=== PATIENT | male | born 1995 | race Caucasian/White ===

== ENCOUNTER 2024-06-19 17:29 | Emergency (ER) | payer MEDICAID, SELFPAY ==
[2024-06-19 17:33] VITALS: BP 136/85; PULSE 73; RESP 10; TEMP 36.5; O2SAT 97
--- NOTE | 2024-06-19 17:42 | ED.GENADUL_ITS ---
Discharge Plan Disposition Patient Disposition: Home Condition: Stable Discharge Details Chief Complaint: Orthopedic Clinical Impression: Contusion of left foot or heel, Contusion of right foot or heel ED Provider: Julio C Marie Home Meds and New Rx's Prescriptions: No Action No Known Home Meds Discharge Instructions Additional Instructions: Your x-rays did not show any concerning findings If your pain continues in 1 to 2 weeks follow-up with your primary care provider If you feel more ill or have severe worsening pain return to the emergency department for reevaluation Stand Alone Forms: Work Release [facility] General Mode of arrival: ambulatory . Date/Time Provider Initiated Documentation: 06/19/24 17:31 . Limitations to Documentation: no limitations . Information obtained by: patient . History of Present Illness 29 year old M presents to the emergency department with the chief complaint of bilateral heel pain s/p fall 2 days ago, described as moderate, Quality is described as aching, and it has been constant. Rest improves symptom(s), Movement worsens symptoms . Patient did receive the following treatments prior to arrival, none Related Data Home Medications ?Medication ?Instructions ?Recorded ?Confirmed Unknown [No Known Home Meds] 06/19/24 06/19/24 Allergies Allergy/AdvReac Type Severity Reaction Status Date / Time No Known Allergies Allergy Unverified 06/19/24 17:36 General Stated Complaint: Orthopedic BRITTANEY: 4 Review of Systems All systems reviewed & are unremarkable except as noted in HPI and below Constitutional Constitutional: Denies chills, Denies fever(s) and Denies weakness Cardiovascular Cardiovascular: Denies chest pain and Denies dyspnea Respiratory Respiratory: Denies cough and Denies dyspnea Gastrointestinal Gastrointestinal: Denies abdominal pain, Denies nausea and Denies vomiting Musculoskeletal Musculoskeletal: Denies joint swelling Integumentary/Breasts Skin/Breast: Denies rash Neurologic Neurologic: Denies weakness Exam Const General: no acute distress Orientation: alert HENMT Head: normal to inspection Ears: external ears normal General nose exam: external nose normal Mouth: moist mucous membranes Eyes General: appearance normal, both eyes and all related structures Neck Neck: normal visual inspection Resp Effort & Inspection: normal respiratory effort and able to speak in complete sentences Cardio Rate: regular rate Skin General skin exam: no rashes or lesions noted Neuro General: patient alert and patient oriented x3 Extrem General: full ROM and capillary refill normal Psych Mental Status: mental status grossly normal Course Vital Signs Vital signs: Vital Signs Temperature 36.5 C 06/19/24 17:33 Pulse 73 06/19/24 17:33 Respiratory Rate 10 L 06/19/24 17:33 Blood Pressure 136/85 06/19/24 17:33 Pulse Oximetry 97 06/19/24 17:33 Temperature 36.5 C 06/19/24 17:33 Temperature Source Oral 06/19/24 17:33 Pulse 73 06/19/24 17:33 Respiratory Rate 10 L 06/19/24 17:33 Respiratory Effort Normal, Non-Labored 06/19/24 17:35 Blood Pressure 136/85 06/19/24 17:33 Blood Pressure Position Sitting 06/19/24 17:33 Pulse Oximetry 97 06/19/24 17:33 Oxygen Delivery Method Room Air 06/19/24 17:33 Oxygen Flow Rate 0 06/19/24 17:33 Pain Level 10 06/19/24 17:33 Medical Decision Making 2-year-old male with no significant past medical history comes in with bilateral heel pain. He says he felt 2 days ago while he was working on a window he slipped and fell approximately 14 feet landing on his feet. He did not hit his head or have other injuries. He denies any headache, neck pain, back pain. He localizes the pain to the mid plantar surface of the heels. There is no visible or palpable deformity but he is tender in his areas bilaterally. Intact sensation and pulses. No tenderness in the foot or wrist of the ankles. He has no lumbar or T-spine tenderness. Suspect contusions but will obtain bilateral heel x-rays, given lack of tenderness in the T and L-spine do not feel any other imaging indicated. Bilateral heel x-rays negative for acute findings. Patient is stable and is able to bear weight without issue. He is stable for discharge and will follow- up with his PCP if not improving in 1 to 2 weeks, return precautions given Differential Diagnosis Differential Diagnosis: Fracture, contusion Quality:SDOH Health Related Social Needs: No Data to Display PFSH All Active Problems (Updated 06/19/24 @ 19:04 by Julio C Marie MD) Contusion of right foot or heel (Acute) Contusion of left foot or heel (Acute) Social History Smoking/Tobacco Use Status: Current every day Tobacco Type: cigarettes Smoking risk assessment performed?: Yes Alcohol Intake: never Drug use: Daily Substance use type: marijuana Housing: apartment Do you feel safe at home: Yes Do you feel safe in your relationship?: Yes
--- NOTE | 2024-06-19 18:20 | DI.RAD_ITS ---
Exam(s) XR HEEL RT OS CALCIS EXAM: XR HEEL RT OS CALCIS CLINICAL HISTORY: fall, pain. TECHNIQUE: 2D digital imaging was performed. Two images were obtained. COMPARISON: No exams were available for comparison FINDINGS: BONES: No acute fracture is present. No bony destructive lesion is seen. JOINTS: No dislocation present. SOFT TISSUE: Normal. IMPRESSION: No acute fracture or dislocation. DATA REPOSITORY: RADIATION DOSE DELIVERED:
--- NOTE | 2024-06-19 18:20 | DI.RAD_ITS ---
Exam(s) XR HEEL LT OS CALCIS EXAM: XR HEEL LT OS CALCIS CLINICAL HISTORY: fall pain. TECHNIQUE: 2D digital imaging was performed. Two images were obtained. COMPARISON: There are no priors for comparison. FINDINGS: BONES: No acute fracture is present. No bony destructive lesion is seen. JOINTS: No dislocation present. SOFT TISSUE: Normal. IMPRESSION: There is no acute fracture or dislocation. DATA REPOSITORY: RADIATION DOSE DELIVERED:
== END 2024-06-19 19:11 | disposition home or self-care (01) ==
LOC: ER 19:15
PROVIDERS: Emergency Provider Emergency Medicine
DX: S90.31XA Contusion of right foot, initial encounter (principal); S90.32XA Contusion of left foot, initial encounter; W13.2XXA Fall from, out of or through roof, initial encounter
CPT/HCPCS: 99284; 73650; 99283

== ENCOUNTER 2024-06-25 14:43 | Outpatient (CLI) | payer MEDICAID, SELFPAY ==
--- NOTE | 2024-06-25 | DI.CT_ITS ---
Exam(s) CT LOWER EXTREMITY LT WO EXAM: CT LOWER EXTREMITY LT WO CLINICAL HISTORY: PAIN LT HEEL, PAIN LT FOOT, M79.672, FALL ONTO HEEL, PERSISTENT PAIN. TECHNIQUE: Imaging Protocol: Axial computed tomography images with coronal and sagittal reformatted images were created and reviewed. CONTRAST MATERIAL: Intravenous: None COMPARISON: CR XR HEEL LT OS CALCIS from 06/19/2024 FINDINGS: OSSEOUS: There is no evidence of acute fracture nor diastasis of the Lisfranc joint. There is no roseline dence of calcaneal fracture. No inferior calcaneal spur. No osseous tarsal coalition evident. Ramirez justin, incidentally noted on the medial aspect of the foot is in un united apophysis of the navicular t uberosity. SOFT TISSUES: There is a E skin and subcutaneous density over the posterior aspect of the calcaneus w hich is probably callus. There is no abnormal fluid collection in the heel fat pad. No inferior kandis caneal spur. No calcification in the plantar fascia nor within the distal Achilles tendon. IMPRESSION: No acute nor subacute appearing fractures in the foot. No obvious abnormal osseous findings in the left calcaneus. Other incidental findings as above. RADIATION DOSE DELIVERED: 81.39mGy.cm Total DLP DATA REPOSITORY: All CT scans at this facility are submitted to the National Radiology Data Registry (NRDR) Dose Index Registry (DIR) with the [employer] ([employer]). RADIATION OPTIMIZATION: All CT scans at this facility use at least one of these dose optimization te chniques: automated exposure control; mA and/or kV adjustment per patient size (includes targeted exa ms where dose is matched to clinical indication); or iterative reconstruction.
== END 2024-06-25 15:03 ==
LOC: DI 14:44
PROVIDERS: Visit Provider Nurse Practitioner Family
DX: M79.672 Pain in left foot (principal)
CPT/HCPCS: 73700